=== PATIENT | male | born 1940 | race Two or more races ===

== ENCOUNTER → 2022-11-17 | Outpatient (CLI) | payer OTHER ==
[2022-11-17 10:29] LABS: Basophils # (auto) 0 10 ^3/uL (0-0.2); Basophils % (auto) 0.5 % (0.0-2.0); Eosinophils # (auto) 0.1 10 ^3/uL (0-0.8); Eosinophils % (auto) 1.5 % (0.0-7.0); Hematocrit 40.5 % (41.0-53.0); Hemoglobin 13.6 g/dL (13.5-17.5); Lymphocytes # (auto) 1.6 10 ^3/uL (0.4-5.4); Lymphocytes % (auto) 32.4 % (10.0-50.0); Mean Corpuscular Hemoglobin 29.7 pg (28.0-32.0); Mean Corpuscular Hgb Conc. 33.6 g/dL (32.0-36.0); Mean Corpuscular Volume 88.4 fL (80.0-100.0); Monocytes # (auto) 0.4 10 ^3/uL (0-1.3); Monocytes % (auto) 8.5 % (0.0-12.0); Neutrophils # (auto) 2.9 10 ^3/uL (1.6-8.6); Neutrophils % (auto) 57.1 % (37.0-80.0); Nucleated Red Blood Cells % 0.1 %; Red Blood Cells 4.58 10^6/uL (4.5-5.90); Red Cell Distribution Width 13.9 % (11.8-14.3)
[2022-11-17 10:42] LABS: Urine Bacteria NONE SEEN /hpf (None Seen); Urine Blood Negative /uL (Negative); Urine Specific Gravity 1.013 (1.001-1.035); Urine WBC 1 /hpf (0 - 3)
[2022-11-17 11:00] LABS: Potassium 4.3 mmol/L (3.5-5.1)
[2022-11-17 11:22] LABS: Albumin 3.9 g/dL (3.4-5.0); BUN/Creatinine Ratio 8.8 (10.0-20.0); Bilirubin, Total 1.1 mg/dL (0.2-1.0); Calcium 8.6 mg/dL (8.5-10.1); Total Protein 7.5 g/dL (6.4-8.2)
== END | disposition home or self-care (01) ==
LOC: LAB 10:02
PROVIDERS: ATTEND Internal Medicine
DX: Z00.01 Encounter for general adult medical examination with abnormal findings (principal); R73.9 Hyperglycemia, unspecified; E03.9 Hypothyroidism, unspecified; E78.5 Hyperlipidemia, unspecified
CPT/HCPCS: 36415; 80053; 80061; 81001; 82306; 82550; 83036; 84436; 84443; 85025; 87086

== ENCOUNTER 2023-12-11 10:42 | Inpatient (IN) | payer OTHER ==
[~2023-12-11] VITALS: Ht 172.7 cm; Wt 74.8 kg
[2023-12-11 11:28] LABS: Basophils # (auto) 0 10 ^3/uL (0-0.2); Basophils % (auto) 0.5 % (0.0-2.0); Eosinophils # (auto) 0.1 10 ^3/uL (0-0.8); Eosinophils % (auto) 0.8 % (0.0-7.0); Hematocrit 35.9 % (41.0-53.0); Lymphocytes # (auto) 1.6 10 ^3/uL (0.4-5.4); Lymphocytes % (auto) 20.9 % (10.0-50.0); Mean Corpuscular Hemoglobin 29.3 pg (28.0-32.0); Mean Corpuscular Hgb Conc. 33.5 g/dL (32.0-36.0); Mean Corpuscular Volume 87.6 fL (80.0-100.0); Monocytes # (auto) 0.4 10 ^3/uL (0-1.3); Monocytes % (auto) 4.8 % (0.0-12.0); Neutrophils # (auto) 5.5 10 ^3/uL (1.6-8.6); Red Cell Distribution Width 14.9 % (11.8-14.3); White Blood Cell 7.5 10^3/uL (4.4-10.8)
[2023-12-11 11:52] LABS: INR 1.06 (0.9-1.15); Partial Thromboplastin Time 25.1 SEC (24.5-34.5); Prothrombin Time 11.2 sec (9.3-11.8)
[2023-12-11 11:55] VITALS: PULSE 65; RESP 17; O2SAT 94
[2023-12-11] MEDS: HEPARIN SODIUM (PORCINE) 5000 UNITS/ML 1ML VIAL IV ONE (11:59)
[2023-12-11] MEDS: SODIUM CHLORIDE 0.9% 1,000 ML IVB ONE (12:01)
[2023-12-11] MEDS: ONDANSETRON HCL 4 MG/2 ML VIAL IV ONE (12:01)
[2023-12-11] MEDS: MORPHINE SULFATE 4 MG/ML SYR/VIAL IV ONE (12:02)
[2023-12-11 12:03] LABS: Alanine Aminotransferase 13 U/L (7-40); Albumin 3.9 g/dL (3.2-4.8); Alkaline Phosphatase 63 U/L (46-116); Anion Gap 8 (5-15); Aspartate Aminotransferase 16 U/L (13-40); BUN/Creatinine Ratio 10.2 (10.0-20.0); Blood Urea Nitrogen 15 mg/dL (9-23); Carbon Dioxide 22 mmol/L (20-30); Chloride 111 mmol/L (98-107); Glucose 146 mg/dL (74-106); Sodium 141 mmol/L (136-145)
[2023-12-11 12:04] LABS: Bilirubin, Total 0.8 mg/dL (0.2-1.0); Total Protein 6.6 g/dL (5.7-8.2)
[2023-12-11] MEDS: HEPARIN DRIP/D5W 100UNITS/ML 250 ML IV SCH (14:07)
[2023-12-11] MEDS: hydrALAZINE HCL 20 MG/ML VL ONE (14:35)
[2023-12-11] MEDS: NITROGLYCERIN 0.4 MG SL TAB SL ONE ×2 (14:35→15:26)
[2023-12-11] MEDS ORDERED: NITROGLYCERIN 0.4 MG SL TAB SL PRN (15:15)
[2023-12-11] MEDS ORDERED: MORPHINE SULFATE INJ 2 MG/ml SYRG IV PRN ×2 (15:15→16:00)
[2023-12-11] MEDS: hydrALAZINE HCL 20 MG/ML VL IV ONE (15:27)
[2023-12-11] MEDS: ASPirin 325 MG TAB PO ONE (15:38)
[2023-12-11] MEDS: CLOPIDOGREL BISULFATE 75 MG TAB PO ONE (15:38)
[2023-12-11] MEDS ORDERED: hydrALAZINE HCL 20 MG/ML VL IV PRN (15:45)
[2023-12-11] MEDS ORDERED: BENA-36 PO (16:00)
[2023-12-11] MEDS ORDERED: ACETAMINOPHEN 325 MG TAB PO PRN (16:00)
[2023-12-11] MEDS ORDERED: HYDROcodone-ACET 5/325MG TAB PO PRN (16:00)
[2023-12-11] MEDS ORDERED: DOCUSATE SOD 100 MG CAP PO PRN (16:00)
[2023-12-11] MEDS ORDERED: ONDANSETRON HCL 4 MG/2 ML VIAL IV PRN (16:00)
[2023-12-11] MEDS ORDERED: CLOP75TA70 PO (16:00)
[2023-12-11] MEDS ORDERED: FLUO20CA90 PO (16:00)
[2023-12-11] MEDS: FUROSEMIDE 40 MG/4 ML VIAL IV ONE (17:32)
[2023-12-11] MEDS: NIFEdipine ER 30 MG TAB PO ONE (18:22)
[2023-12-11 19:31] LABS: Urine Bacteria None Seen /hpf (None Seen)
[2023-12-11 19:39] LABS: Urine Blood Negative /uL (Negative); Urine Clarity Clear (Clear); Urine Color Light-Yellow (Yellow); Urine Protein, UAD TRACE (Negative); Urine Specific Gravity 1.019 (1.001-1.035); Urine Urobilinogen Normal (Negative); Urine WBC <1 /hpf (0 - 3); Urine pH 5.5 (5.0-9.0)
[2023-12-11] MEDS: NITROGLYCERIN 0.4 MG SL TAB SL PRN (19:39)
[2023-12-11] MEDS: SODIUM CHLORIDE 0.9% 1,000 ML IV ONE (19:43)
[2023-12-11 21:04] LABS: INR 1.14 (0.9-1.15)
[2023-12-11] MEDS: IOHEXOL 300 MG/ML 100ML BOTTLE IJ ONE (21:06)
[2023-12-11] MEDS: IODIXANOL 320MG/ML 100ML BTL IV ONE (21:41)
[2023-12-11] MEDS: LIDOCAINE 2%HCL (LOCAL ANESTH.) INJ 20ML MDV ONE (21:41)
[2023-12-11] MEDS: METOPROLOL TARTRATE 25 MG TAB PO SCH (22:00)
[2023-12-11] MEDS: ATORVASTATIN 20 MG TAB PO SCH (22:00)
[2023-12-11] MEDS: SODIUM CHLOR 0.9% PF (SALINE LOCK) 10ML VIAL/SYR IV SCH (22:00)
[2023-12-11] MEDS: ANGIOMAX 250 MG VIAL IV ONE (22:03)
[2023-12-11] MEDS: fentaNYL CITRATE 100 MCG/2 ML VL ONE (22:03)
[2023-12-11] MEDS: SODIUM CHL 0.9% 50 ML ONE (22:04)
[2023-12-11] MEDS: MIDAZOLAM HCL 2MG/2ML 2ml VIAL (1mg/ml) ONE (22:04)
[2023-12-11] MEDS ORDERED: HEPARIN SODIUM (PORCINE) 5000 UNITS/ML 1ML VIAL IV ONE (22:45)
[2023-12-11] MEDS ORDERED: HEPARIN DRIP/D5W 100UNITS/ML 250 ML IV SCH (22:45)
[2023-12-11 23:15] VITALS: BP 136/80; PULSE 79; RESP 17; O2SAT 97
[2023-12-11 23:30] VITALS: BP 147/81; PULSE 75; RESP 19; O2SAT 97
[2023-12-11] MEDS ORDERED: CLOPIDOGREL BISULFATE 75 MG TAB PO ONE (23:30)
[2023-12-11 23:45] VITALS: BP 145/85; PULSE 78; RESP 16; O2SAT 98
[2023-12-12] VITALS (9 sets, daily range): BP systolic 112–155; BP diastolic 60–87; PULSE 59–84; RESP 16–18; TEMP 97.6–98.9; O2SAT 93–99
[2023-12-12] MEDS: SODIUM CHLORIDE 0.9% 1,000 ML IV ONE (00:17)
[2023-12-12] MEDS: FUROSEMIDE 20 MG/2 ML VIAL IV SCH (05:29)
[2023-12-12 05:48] LABS: Basophils # (auto) 0 10 ^3/uL (0-0.2); Basophils % (auto) 0.3 % (0.0-2.0); Eosinophils # (auto) 0 10 ^3/uL (0-0.8); Eosinophils % (auto) 0.1 % (0.0-7.0); Hemoglobin 11.8 g/dL (13.5-17.5); Lymphocytes # (auto) 1.1 10 ^3/uL (0.4-5.4); Mean Corpuscular Hemoglobin 29.4 pg (28.0-32.0); Mean Corpuscular Hgb Conc. 33.7 g/dL (32.0-36.0); Mean Corpuscular Volume 87.4 fL (80.0-100.0); Monocytes # (auto) 0.7 10 ^3/uL (0-1.3); Monocytes % (auto) 7.3 % (0.0-12.0); Neutrophils # (auto) 7.3 10 ^3/uL (1.6-8.6); Neutrophils % (auto) 80.3 % (37.0-80.0); Nucleated Red Blood Cells % 0.1 %; Red Blood Cells 4.01 10^6/uL (4.5-5.90); White Blood Cell 9.1 10^3/uL (4.4-10.8)
[2023-12-12 06:23] LABS: Alanine Aminotransferase 26 U/L (7-40); Albumin 3.7 g/dL (3.2-4.8); Alkaline Phosphatase 61 U/L (46-116); Anion Gap 7 (5-15); Aspartate Aminotransferase 148 U/L (13-40); BUN/Creatinine Ratio 14.2 (10.0-20.0); Blood Urea Nitrogen 19 mg/dL (9-23); Calcium 8.6 mg/dL (8.5-10.1); Carbon Dioxide 23 mmol/L (20-30); Chloride 110 mmol/L (98-107); Glucose 114 mg/dL (74-106); Potassium 4.4 mmol/L (3.5-5.1); Sodium 140 mmol/L (136-145)
[2023-12-12 06:24] LABS: Bilirubin, Total 0.8 mg/dL (0.2-1.0); Total Protein 6.1 g/dL (5.7-8.2)
[2023-12-12] MEDS: FLUoxetine HCL 20 MG CAP PO SCH (09:39)
[2023-12-12] MEDS: NIFEdipine ER 30 MG TAB PO SCH (09:39)
[2023-12-12] MEDS: ASPirin 81 mg TAB PO SCH (09:39)
[2023-12-12] MEDS: CLOPIDOGREL BISULFATE 75 MG TAB PO SCH (09:39)
[2023-12-12] MEDS ORDERED: ASPirin 81 mg TAB PO SCH (10:00)
[2023-12-12] MEDS ORDERED: CLOPIDOGREL BISULFATE 75 MG TAB PO ONE ×2 (10:00)
[2023-12-12] MEDS ORDERED: PATIENTS OWN MEDICATION (Benazepril Hcl 1 TAB) PO SCH (10:00)
[2023-12-12] MEDS ORDERED: BENAZEPRIL HCL 10 MG TAB PO SCH (10:00)
[2023-12-13] VITALS (7 sets, daily range): BP systolic 96–128; BP diastolic 55–75; PULSE 59–67; RESP 16–22; TEMP 97.5–98.2; O2SAT 95–98
[2023-12-13 10:07] LABS: Basophils # (auto) 0 10 ^3/uL (0-0.2); Basophils % (auto) 0.5 % (0.0-2.0); Eosinophils # (auto) 0.1 10 ^3/uL (0-0.8); Eosinophils % (auto) 0.9 % (0.0-7.0); Hemoglobin 11.8 g/dL (13.5-17.5); Lymphocytes # (auto) 0.9 10 ^3/uL (0.4-5.4); Lymphocytes % (auto) 13.3 % (10.0-50.0); Mean Corpuscular Hemoglobin 29.6 pg (28.0-32.0); Mean Corpuscular Hgb Conc. 33.8 g/dL (32.0-36.0); Mean Corpuscular Volume 87.6 fL (80.0-100.0); Monocytes # (auto) 0.5 10 ^3/uL (0-1.3); Monocytes % (auto) 7.9 % (0.0-12.0); Neutrophils # (auto) 5.4 10 ^3/uL (1.6-8.6); Neutrophils % (auto) 77.4 % (37.0-80.0); Red Cell Distribution Width 15.1 % (11.8-14.3); White Blood Cell 6.9 10^3/uL (4.4-10.8)
[2023-12-13 10:25] LABS: Chloride 109 mmol/L (98-107); Sodium 139 mmol/L (136-145)
[2023-12-13 10:26] LABS: Anion Gap 6 (5-15); Carbon Dioxide 24 mmol/L (20-30)
[2023-12-13 10:27] LABS: Calcium 8.7 mg/dL (8.5-10.1)
[2023-12-13 10:31] LABS: BUN/Creatinine Ratio 13.9 (10.0-20.0); Blood Urea Nitrogen 21 mg/dL (9-23); Glucose 122 mg/dL (74-106)
[2023-12-13] MEDS: FUROSEMIDE 20 MG/2 ML VIAL IV SCH (10:32)
[2023-12-13] MEDS: ENALAPRIL MALEATE 2.5 MG TAB PO SCH (10:34)
[2023-12-14] VITALS (7 sets, daily range): BP systolic 120–146; BP diastolic 70–93; PULSE 64–69; RESP 18–20; TEMP 36.5; O2SAT 96–99
[2023-12-14] MEDS ORDERED: ASPI-498 OR (13:25)
[2023-12-14] MEDS ORDERED: FURO1TAB33 PO (13:25)
[2023-12-14] MEDS ORDERED: POTA8TAB38 PO (13:25)
[2023-12-14] MEDS ORDERED: ENAL1TAB43 PO (13:25)
[2023-12-14] MEDS ORDERED: CLOP75TA28 PO (13:25)
[2023-12-14] MEDS ORDERED: METO25TA36 PO (13:25)
== END 2023-12-14 17:25 | disposition home or self-care (01) | DRG 322 ==
LOC: ER 10:42 → EDBD 10:42 → TELE 15:59 → TELE-WESTW 12-12 00:15
PROVIDERS: ADMIT Nurse Practitioner Family; ATTEND Nurse Practitioner Acute Care
PROC: 04HY32Z Insertion of Monitoring Device into Lower Artery, Percutaneous Approach (ICD-10-PCS; principal; 2023-12-11)
PROC: 027035Z Dilation of Coronary Artery, One Artery with Two Drug-eluting Intraluminal Devices, Percutaneous Approach (ICD-10-PCS; 2023-12-11)
PROC: 4A023N7 Measurement of Cardiac Sampling and Pressure, Left Heart, Percutaneous Approach (ICD-10-PCS; 2023-12-11)
PROC: B312YZZ Fluoroscopy of Left Subclavian Artery using Other Contrast (ICD-10-PCS; 2023-12-11)
PROC: B211YZZ Fluoroscopy of Multiple Coronary Arteries using Other Contrast (ICD-10-PCS; 2023-12-11)
PROC: B218YZZ Fluoroscopy of Left Internal Mammary Bypass Graft using Other Contrast (ICD-10-PCS; 2023-12-11)
PROC: B213YZZ Fluoroscopy of Multiple Coronary Artery Bypass Grafts using Other Contrast (ICD-10-PCS; 2023-12-11)
DX: I21.4 Non-ST elevation (NSTEMI) myocardial infarction (principal); I13.0 Hypertensive heart and chronic kidney disease with heart failure and stage 1 through stage 4 chronic kidney disease, or unspecified chronic kidney disease; N17.9 Acute kidney failure, unspecified; I16.0 Hypertensive urgency; E78.5 Hyperlipidemia, unspecified; D64.9 Anemia, unspecified; I50.9 Heart failure, unspecified; N18.32 Chronic kidney disease, stage 3b; I25.10 Atherosclerotic heart disease of native coronary artery without angina pectoris; I27.20 Pulmonary hypertension, unspecified; I08.0 Rheumatic disorders of both mitral and aortic valves; Z95.1 Presence of aortocoronary bypass graft; Z79.899 Other long term (current) drug therapy; Z79.02 Long term (current) use of antithrombotics/antiplatelets; Z86.73 Personal history of transient ischemic attack (TIA), and cerebral infarction without residual deficits; Z87.891 Personal history of nicotine dependence
CPT/HCPCS: 36415; 70450; 71045; 71260; 74177; 80048; 80053; 81001; 83880; 84484; 85025; 85610; 85730; 93005; 93306; 99152; 99291; G0378; J2250; J2405; Q9967

== ENCOUNTER 2024-04-08 01:28 | Inpatient (IN) | payer OTHER ==
[2024-04-08] VITALS (19 sets, daily range): BP systolic 61–174; BP diastolic 61–99; PULSE 52–91; RESP 13–23; TEMP 97.4–98.5; O2SAT 94–100
[~2024-04-08] VITALS: Ht 172.7 cm; Wt 68.9 kg
[~2024-04-08 01:28] MED LIST: ASPI-498 OR; BENA-36 PO; CLOP75TA28 PO; CLOP75TA70 PO; ENAL1TAB43 PO; FLUO-470 PO; FURO1TAB33 PO; METO25TA36 PO; POTA8TAB38 PO
[2024-04-08] MEDS: PANTOPRAZOLE 40 MG/10 ML VIAL INJ IV ONE (02:45)
[2024-04-08] MEDS: PANTOPRAZOLE 40mg/50ML NS AE 50 ML IV ONE (02:45)
[2024-04-08 03:18] LABS: Albumin 3.7 g/dL (3.2-4.8); Alkaline Phosphatase 52 U/L (46-116); Anion Gap 8 (5-15); Aspartate Aminotransferase 12 U/L (13-40); BUN/Creatinine Ratio 8.3 (10.0-20.0); Blood Urea Nitrogen 11 mg/dL (9-23); Calcium 8.6 mg/dL (8.7-10.4); Carbon Dioxide 23 mmol/L (20-31); Chloride 108 mmol/L (98-107); Glucose 189 mg/dL (74-106); INR 1.18 (0.9-1.15); Potassium 3.7 mmol/L (3.5-5.1); Prothrombin Time 12.4 sec (9.3-11.8); Sodium 139 mmol/L (136-145)
[2024-04-08 03:19] LABS: Bilirubin, Total 0.9 mg/dL (0.2-1.0); Total Protein 6.2 g/dL (5.7-8.2)
[2024-04-08 03:22] LABS: Basophils # (auto) 0 10 ^3/uL (0-0.2); Basophils % (auto) 0.6 % (0.0-2.0); Eosinophils # (auto) 0 10 ^3/uL (0-0.8); Eosinophils % (auto) 0.2 % (0.0-7.0); Hematocrit 30.1 % (41.0-53.0); Lymphocytes # (auto) 1.3 10 ^3/uL (0.4-5.4); Lymphocytes % (auto) 15.6 % (10.0-50.0); Mean Corpuscular Hemoglobin 30.2 pg (28.0-32.0); Mean Corpuscular Hgb Conc. 33.3 g/dL (32.0-36.0); Mean Corpuscular Volume 90.6 fL (80.0-100.0); Monocytes # (auto) 0.4 10 ^3/uL (0-1.3); Monocytes % (auto) 4.6 % (0.0-12.0); Neutrophils # (auto) 6.5 10 ^3/uL (1.6-8.6); Nucleated Red Blood Cells % 0.1 %; Platelet Count (auto) 158 10^3/uL (140-450); Red Blood Cells 3.32 10^6/uL (4.5-5.90); Red Cell Distribution Width 15.7 % (11.8-14.3); White Blood Cell 8.2 10^3/uL (4.4-10.8)
[2024-04-08 03:23] LABS: Alanine Aminotransferase < 9 U/L (7-40)
[2024-04-08] MEDS: HYDROcodone-ACET 5/325MG TAB PO ONE (03:30)
[2024-04-08] MEDS: SODIUM CHLORIDE 0.9% 1,000 ML IV ONE (03:34)
[2024-04-08 04:44] LABS: Hemoglobin 8.4 g/dL (13.5-17.5)
[2024-04-08 04:45] LABS: Hematocrit 24.7 % (41.0-53.0)
[2024-04-08] MEDS ORDERED: MORPHINE SULFATE INJ 2 MG/ml SYRG IV PRN (11:30)
[2024-04-08] MEDS ORDERED: DOCUSATE SOD 100 MG CAP PO PRN (11:30)
[2024-04-08] MEDS ORDERED: ONDANSETRON HCL 4 MG/2 ML VIAL IV PRN ×2 (11:30→15:30)
[2024-04-08] MEDS: SODIUM CHLORIDE 0.9% 1,000 ML IV SCH (11:30)
[2024-04-08] MEDS ORDERED: NITROGLYCERIN 0.4 MG SL TAB SL PRN (11:30)
[2024-04-08] MEDS: HYDROmorphone HCL 2 MG/ML VL/or syr IV PRN (15:25)
[2024-04-08] MEDS ORDERED: ePHEDrine SULFATE 50 MG/ML AMP IV PRN (15:30)
[2024-04-08] MEDS ORDERED: FLUMAZENIL 0.1 MG/ML INJ 10ML MDV IV PRN (15:30)
[2024-04-08] MEDS ORDERED: NALOXONE HCL 0.4 MG/ML VIAL IV PRN (15:30)
[2024-04-08] MEDS ORDERED: fentaNYL CITRATE 100 MCG/2 ML VL IV PRN (15:30)
[2024-04-08] MEDS: hydrALAZINE HCL 20 MG/ML VL IV PRN (15:46)
[2024-04-08] MEDS: PANTOPRAZOLE 40mg/50ML NS AE 50 ML IV SCH (16:30)
[2024-04-08] MEDS: OCTREOTIDE ACETATE 100 MCG in SODIUM CHL 0.9% 50 ML IV ONE (17:40)
[2024-04-08] MEDS: OCTREOTIDE ACETATE 500 MCG in SODIUM CHL 0.9% 99 ML IV SCH (17:50)
[2024-04-08] MEDS: PIPERACILLIN-TAZOB 3.375GM 100 ML IV ONE (18:25)
[2024-04-08 19:01] LABS: Hematocrit 34.3 % (41.0-53.0); Hemoglobin 11.3 g/dL (13.5-17.5)
[2024-04-08] MEDS: PANTOPRAZOLE 40 MG/10 ML VIAL INJ IV SCH (22:09)
[2024-04-09] VITALS (10 sets, daily range): BP systolic 135–170; BP diastolic 74–101; PULSE 74–99; RESP 18–21; TEMP 97.4–98.4; O2SAT 95–99
[2024-04-09 00:31] LABS: Hematocrit 32.9 % (41.0-53.0); Hemoglobin 11.1 g/dL (13.5-17.5)
[2024-04-09] MEDS: PIPERACILLIN-TAZOB 3.375GM 100 ML IV SCH (05:12)
[2024-04-09 06:03] LABS: Basophils # (auto) 0 10 ^3/uL (0-0.2); Basophils % (auto) 0.1 % (0.0-2.0); Eosinophils # (auto) 0 10 ^3/uL (0-0.8); Eosinophils % (auto) 0.1 % (0.0-7.0); Hematocrit 32.2 % (41.0-53.0); Hemoglobin 10.9 g/dL (13.5-17.5); Lymphocytes # (auto) 1.1 10 ^3/uL (0.4-5.4); Mean Corpuscular Hemoglobin 30.1 pg (28.0-32.0); Mean Corpuscular Volume 88.4 fL (80.0-100.0); Monocytes # (auto) 0.8 10 ^3/uL (0-1.3); Monocytes % (auto) 9.1 % (0.0-12.0); Neutrophils # (auto) 6.5 10 ^3/uL (1.6-8.6); Neutrophils % (auto) 77.7 % (37.0-80.0); Nucleated Red Blood Cells % 0.1 %; Platelet Count (auto) 110 10^3/uL (140-450); Red Blood Cells 3.64 10^6/uL (4.5-5.90); Red Cell Distribution Width 16.7 % (11.8-14.3); White Blood Cell 8.4 10^3/uL (4.4-10.8)
[2024-04-09 06:18] LABS: Alanine Aminotransferase 15 U/L (7-40); Albumin 3.7 g/dL (3.2-4.8); Alkaline Phosphatase 50 U/L (46-116); Anion Gap 7 (5-15); Aspartate Aminotransferase 133 U/L (13-40); BUN/Creatinine Ratio 9.3 (10.0-20.0); Blood Urea Nitrogen 13 mg/dL (9-23); Calcium 8.9 mg/dL (8.7-10.4); Carbon Dioxide 23 mmol/L (20-31); Chloride 110 mmol/L (98-107); Glucose 132 mg/dL (74-106); Potassium 4.6 mmol/L (3.5-5.1); Sodium 140 mmol/L (136-145)
[2024-04-09 06:19] LABS: Bilirubin, Total 1.8 mg/dL (0.2-1.0); Total Protein 6.2 g/dL (5.7-8.2)
[2024-04-09 12:14] LABS: Hemoglobin 11.2 g/dL (13.5-17.5)
[2024-04-09] MEDS: hydrALAZINE HCL 20 MG/ML VL IV PRN (13:45)
[2024-04-09] MEDS: ACETAMINOPHEN 650 mg PER 20.3 mL UD PO PRN (15:23)
[2024-04-09] MEDS: SODIUM CHLORIDE 0.9% 1,000 ML IV SCH (15:23)
[2024-04-09 18:39] LABS: Hematocrit 34.7 % (41.0-53.0); Hemoglobin 11.3 g/dL (13.5-17.5)
[2024-04-09] MEDS: SUCRALFATE 1 GM/10 ML ORAL SUSP GT SCH (22:30)
[2024-04-10] VITALS (8 sets, daily range): BP systolic 125–157; BP diastolic 63–107; PULSE 60–88; RESP 16–19; TEMP 97.4–98.3; O2SAT 94–100
[2024-04-10] MEDS: LEVOTHYROXINE SODIUM 25 MCG TAB PO SCH (06:12)
[2024-04-10 06:18] LABS: Basophils # (auto) 0 10 ^3/uL (0-0.2); Basophils % (auto) 0.4 % (0.0-2.0); Eosinophils # (auto) 0 10 ^3/uL (0-0.8); Eosinophils % (auto) 0.3 % (0.0-7.0); Hematocrit 32.8 % (41.0-53.0); Hemoglobin 11.1 g/dL (13.5-17.5); Lymphocytes # (auto) 1.5 10 ^3/uL (0.4-5.4); Mean Corpuscular Hgb Conc. 33.7 g/dL (32.0-36.0); Mean Corpuscular Volume 88.8 fL (80.0-100.0); Monocytes # (auto) 0.6 10 ^3/uL (0-1.3); Monocytes % (auto) 9.1 % (0.0-12.0); Neutrophils # (auto) 4.9 10 ^3/uL (1.6-8.6); Neutrophils % (auto) 69.2 % (37.0-80.0); Nucleated Red Blood Cells % 0.1 %; Platelet Count (auto) 107 10^3/uL (140-450); White Blood Cell 7.1 10^3/uL (4.4-10.8)
[2024-04-10 06:32] LABS: INR 1.18 (0.9-1.15); Prothrombin Time 12.4 sec (9.3-11.8)
[2024-04-10 06:52] LABS: Alanine Aminotransferase 17 U/L (7-40); Albumin 3.5 g/dL (3.2-4.8); Alkaline Phosphatase 48 U/L (46-116); Anion Gap 7 (5-15); Aspartate Aminotransferase 97 U/L (13-40); BUN/Creatinine Ratio 11.8 (10.0-20.0); Blood Urea Nitrogen 16 mg/dL (9-23); Calcium 8.9 mg/dL (8.7-10.4); Carbon Dioxide 24 mmol/L (20-31); Chloride 110 mmol/L (98-107); Glucose 97 mg/dL (74-106); Sodium 141 mmol/L (136-145)
[2024-04-10 06:53] LABS: Bilirubin, Total 1.4 mg/dL (0.2-1.0); Total Protein 6.1 g/dL (5.7-8.2)
[2024-04-10] MEDS: FLUoxetine HCL 20 MG CAP PO SCH (09:09)
[2024-04-10] MEDS: METOPROLOL SUCCINATE XL 50 MG TAB PO SCH (09:09)
[2024-04-10] MEDS: ENALAPRIL MALEATE 2.5 MG TAB PO SCH (09:10)
[2024-04-10] MEDS: FUROSEMIDE 20 MG TAB PO SCH (17:33)
[2024-04-10 17:58] LABS: Hematocrit 34.4 % (41.0-53.0); Hemoglobin 11.3 g/dL (13.5-17.5)
[2024-04-10] MEDS: PRAZOSIN HCL 1 MG CAP PO SCH (20:19)
[2024-04-11] VITALS (9 sets, daily range): BP systolic 113–145; BP diastolic 67–76; PULSE 50–68; RESP 17–19; TEMP 36.6; O2SAT 92–99
[2024-04-11 05:56] LABS: Basophils # (auto) 0 10 ^3/uL (0-0.2); Basophils % (auto) 0.4 % (0.0-2.0); Eosinophils # (auto) 0 10 ^3/uL (0-0.8); Eosinophils % (auto) 0.3 % (0.0-7.0); Hematocrit 32.5 % (41.0-53.0); Hemoglobin 11.1 g/dL (13.5-17.5); Lymphocytes # (auto) 0.7 10 ^3/uL (0.4-5.4); Lymphocytes % (auto) 11.5 % (10.0-50.0); Mean Corpuscular Hemoglobin 30.2 pg (28.0-32.0); Mean Corpuscular Hgb Conc. 34.2 g/dL (32.0-36.0); Mean Corpuscular Volume 88.3 fL (80.0-100.0); Monocytes # (auto) 0.5 10 ^3/uL (0-1.3); Monocytes % (auto) 7.3 % (0.0-12.0); Neutrophils # (auto) 5.2 10 ^3/uL (1.6-8.6); Neutrophils % (auto) 80.5 % (37.0-80.0); Nucleated Red Blood Cells % 0.2 %; Platelet Count (auto) 113 10^3/uL (140-450); Red Blood Cells 3.68 10^6/uL (4.5-5.90); Red Cell Distribution Width 16.7 % (11.8-14.3); White Blood Cell 6.5 10^3/uL (4.4-10.8)
[2024-04-11 06:23] LABS: Alanine Aminotransferase 16 U/L (7-40); Albumin 3.4 g/dL (3.2-4.8); Alkaline Phosphatase 45 U/L (46-116); Anion Gap 7 (5-15); Aspartate Aminotransferase 49 U/L (13-40); BUN/Creatinine Ratio 11.3 (10.0-20.0); Bilirubin, Total 1.2 mg/dL (0.2-1.0); Blood Urea Nitrogen 18 mg/dL (9-23); Calcium 8.6 mg/dL (8.7-10.4); Carbon Dioxide 24 mmol/L (20-31); Chloride 109 mmol/L (98-107); Glucose 93 mg/dL (74-106); Potassium 3.7 mmol/L (3.5-5.1); Sodium 140 mmol/L (136-145); Total Protein 5.8 g/dL (5.7-8.2)
[2024-04-11] MEDS ORDERED: PANT40TA2 PO (13:31)
[2024-04-11] MEDS ORDERED: AUG875T PO (13:31)
[2024-04-11] MEDS ORDERED: LEVO25TA6 PO (13:31)
[2024-04-11] MEDS ORDERED: SUCR1SUS26 PO (13:31)
[2024-04-12 01:00] VITALS: BP 137/76; PULSE 67; RESP 18; TEMP 97.9; O2SAT 95
[2024-04-12 05:00] VITALS: BP 133/72; PULSE 61; RESP 18; TEMP 98; O2SAT 98
[2024-04-12 06:52] LABS: Basophils # (auto) 0 10 ^3/uL (0-0.2); Basophils % (auto) 0.6 % (0.0-2.0); Eosinophils # (auto) 0.1 10 ^3/uL (0-0.8); Eosinophils % (auto) 1.9 % (0.0-7.0); Hematocrit 31.6 % (41.0-53.0); Lymphocytes # (auto) 1.3 10 ^3/uL (0.4-5.4); Lymphocytes % (auto) 25.3 % (10.0-50.0); Mean Corpuscular Hemoglobin 30.4 pg (28.0-32.0); Mean Corpuscular Hgb Conc. 34.8 g/dL (32.0-36.0); Mean Corpuscular Volume 87.4 fL (80.0-100.0); Monocytes # (auto) 0.5 10 ^3/uL (0-1.3); Monocytes % (auto) 10.3 % (0.0-12.0); Neutrophils # (auto) 3.2 10 ^3/uL (1.6-8.6); Neutrophils % (auto) 61.9 % (37.0-80.0); Nucleated Red Blood Cells % 0.1 %; Platelet Count (auto) 140 10^3/uL (140-450); Red Blood Cells 3.62 10^6/uL (4.5-5.90); Red Cell Distribution Width 16.6 % (11.8-14.3); White Blood Cell 5.2 10^3/uL (4.4-10.8)
[2024-04-12 09:00] VITALS: BP 151/71; PULSE 60; RESP 17; TEMP 98; O2SAT 98
[2024-04-12 13:00] VITALS: BP 124/65; PULSE 56; RESP 17; TEMP 98; O2SAT 93
== END 2024-04-12 16:07 | disposition home or self-care (01) | DRG 368 ==
LOC: EDBD 01:28 → ER 01:28 → TELE 11:31 → TELE-EAST 16:26
PROVIDERS: ADMIT Nurse Practitioner Family; ATTEND Student in an Organized Health Care Education/Training Program
PROC: 0DB68ZX Excision of Stomach, Via Natural or Artificial Opening Endoscopic, Diagnostic (ICD-10-PCS; 2024-04-08)
PROC: 30243N1 Transfusion of Nonautologous Red Blood Cells into Central Vein, Percutaneous Approach (ICD-10-PCS; 2024-04-08)
PROC: 3E0G8GC Introduction of Other Therapeutic Substance into Upper GI, Via Natural or Artificial Opening Endoscopic (ICD-10-PCS; 2024-04-08)
PROC: 0DB98ZX Excision of Duodenum, Via Natural or Artificial Opening Endoscopic, Diagnostic (ICD-10-PCS; principal; 2024-04-08 14:34)
DX: K21.01 Gastro-esophageal reflux disease with esophagitis, with bleeding (principal); K22.11 Ulcer of esophagus with bleeding; K22.6 Gastro-esophageal laceration-hemorrhage syndrome; K29.71 Gastritis, unspecified, with bleeding; K57.31 Diverticulosis of large intestine without perforation or abscess with bleeding; D62 Acute posthemorrhagic anemia; I50.42 Chronic combined systolic (congestive) and diastolic (congestive) heart failure; E03.9 Hypothyroidism, unspecified; I25.10 Atherosclerotic heart disease of native coronary artery without angina pectoris; N40.1 Benign prostatic hyperplasia with lower urinary tract symptoms; I70.1 Atherosclerosis of renal artery; N26.1 Atrophy of kidney (terminal); I16.0 Hypertensive urgency; I11.0 Hypertensive heart disease with heart failure; K44.9 Diaphragmatic hernia without obstruction or gangrene; N30.90 Cystitis, unspecified without hematuria; Z95.1 Presence of aortocoronary bypass graft; Z86.73 Personal history of transient ischemic attack (TIA), and cerebral infarction without residual deficits; I25.2 Old myocardial infarction; Z95.0 Presence of cardiac pacemaker
CPT/HCPCS: 36415; 71045; 74175; 80053; 83880; 85014; 85018; 85025; 85610; 85730; 86850; 86900; 86901; 86920; 93005; 96365; 96375; 97163; G0378; J2470; J2543

== ENCOUNTER 2024-07-19 00:28 | Inpatient (IN) | payer OTHER ==
[2024-07-18 23:50] VITALS: BP 170/94; PULSE 72; RESP 17; TEMP 97.8; O2SAT 94
[~2024-07-19] VITALS: Ht 180.3 cm; Wt 67.4 kg
[~2024-07-19 00:28] MED LIST changes: +AUG875T PO; -BENA-36 PO; -CLOP75TA28 PO; +LEVO25TA6 PO; +PANT40TA2 PO; +SUCR1SUS26 PO
[2024-07-19] MEDS ORDERED: ASPI1TAB19 PO (01:16)
[2024-07-19] MEDS ORDERED: PRAZ1CAP2 PO (01:16)
[2024-07-19] MEDS ORDERED: LEVO25TA6 PO (01:16)
[2024-07-19] MEDS ORDERED: HYDR50TA47 PO (01:16)
[2024-07-19] MEDS ORDERED: ATOR80TA PO (01:16)
[2024-07-19] MEDS ORDERED: FLUO1TAB14 PO (01:16)
[2024-07-19] MEDS ORDERED: CLOP75TA28 PO (01:16)
[2024-07-19 01:43] LABS: Basophils # (auto) 0 10 ^3/uL (0-0.2); Basophils % (auto) 0.7 % (0.0-2.0); Eosinophils # (auto) 0 10 ^3/uL (0-0.8); Eosinophils % (auto) 0.6 % (0.0-7.0); Hematocrit 36.9 % (41.0-53.0); Hemoglobin 12.3 g/dL (13.5-17.5); Lymphocytes # (auto) 0.9 10 ^3/uL (0.4-5.4); Lymphocytes % (auto) 18.9 % (10.0-50.0); Mean Corpuscular Hemoglobin 29.7 pg (28.0-32.0); Mean Corpuscular Hgb Conc. 33.4 g/dL (32.0-36.0); Mean Corpuscular Volume 89.1 fL (80.0-100.0); Monocytes # (auto) 0.4 10 ^3/uL (0-1.3); Monocytes % (auto) 8.7 % (0.0-12.0); Neutrophils # (auto) 3.4 10 ^3/uL (1.6-8.6); Neutrophils % (auto) 71.1 % (37.0-80.0); Platelet Count (auto) 156 10^3/uL (140-450); Red Blood Cells 4.14 10^6/uL (4.5-5.90); White Blood Cell 4.8 10^3/uL (4.4-10.8)
[2024-07-19 01:59] LABS: Alanine Aminotransferase 16 U/L (7-40); Alkaline Phosphatase 62 U/L (46-116); Anion Gap 7 (5-15); Aspartate Aminotransferase 23 U/L (13-40); BUN/Creatinine Ratio 10.7 (10.0-20.0); Blood Urea Nitrogen 14 mg/dL (9-23); Calcium 9.8 mg/dL (8.7-10.4); Carbon Dioxide 27 mmol/L (20-31); Chloride 106 mmol/L (98-107); Potassium 4.1 mmol/L (3.5-5.1); Sodium 140 mmol/L (136-145)
[2024-07-19 02:00] LABS: Albumin 3.6 g/dL (3.2-4.8); Total Protein 6.6 g/dL (5.7-8.2)
[2024-07-19 02:03] LABS: Glucose 109 mg/dL (74-106)
[2024-07-19] MEDS ORDERED: NITROGLYCERIN 0.4 MG SL TAB SL PRN (04:30)
[2024-07-19] MEDS ORDERED: MORPHINE SULFATE INJ 2 MG/ml SYRG IV PRN (04:30)
[2024-07-19] MEDS ORDERED: ONDANSETRON HCL 4 MG/2 ML VIAL IV PRN (04:30)
[2024-07-19] MEDS ORDERED: ACETAMINOPHEN 325 MG TAB PO PRN (04:30)
--- NOTE | 2024-07-19 04:33 | DVHHP2 ---
History of Present Illness Reason for Visit: Generalized weakness History of Present Illness Patient being transferred from outside facility for continuity of care and disposition. Patient presented to outside facility yesterday with complaints of generalized weakness. Patient has a history of dementia as a poor historian. P er ED records patient presented with generalized weakness I have been ongoing for the past four days. On arrival patient was noted to have an elevated BNP and was treated for exacerbation of congestive heart failure. No complaints of chest pain or shortness for breath. No neurologic focal deficits. Past Medical History Hypertension, CVA, dementia, coronary artery disease, thyroid Past Surgical History CABG PTCA Family History Noncontributory Smoke: No ALCOHOL: none Drugs: None Lives: with Family Review of Systems Review of Systems Review of systems are limited due to the patient's advanced dementia. Allergies: Coded Allergies: NO KNOWN ALLERGIES (Unverified , 12/11/23) Medications Current Medications Medications Dose Ordered Sig/Ever Route Start Time Stop Time Status Last Admin Dose Admin Aspirin 81 mg DAILY PO 07/19/24 10:00 UNV Furosemide 20 mg BIDD IV 07/19/24 06:00 UNV Atorvastatin Calcium 80 mg HS PO 07/19/24 22:00 UNV Clopidogrel Bisulfate 75 mg DAILY PO 07/19/24 10:00 UNV Hydralazine HCl 25 mg Q12HR PO 07/19/24 10:00 UNV Levothyroxine Sodium 25 mcg QAM@0600 PO 07/19/24 06:00 UNV Ondansetron HCl 4 mg Q4HP PRN IV 07/19/24 04:30 UNV Enoxaparin Sodium 40 mg DAILY SC 07/19/24 10:00 UNV Acetaminophen 650 mg Q6HP PRN PO 07/19/24 04:30 Nitroglycerin 0.4 mg Q5MINP PRN SL 07/19/24 04:30 Morphine Sulfate 2 mg Q30M PRN IV 07/19/24 04:30 Exam Vital Signs Vital Signs Date Time Temp Pulse Resp B/P (MAP) Pulse Ox O2 Delivery O2 Flow Rate FiO2 07/19/24 00:50 Room Air* 0 07/18/24 23:50 97.8 72 17 170/94 (119) 94 97.8 Exam Gen: 84-year-old male in mild distress Skin: Warm, dry, normal color and texture, no rash. HEENT: Normocephalic atraumatic, mucous membranes moist and pink. Neck: Cervical and supraclavicular nodes normal without enlargement, trachea is midline, thyroid gland is normal without masses. Pulmonary: Clear to auscultation and percussion bilaterally. Cardiac: Regular rate and rhythm. No murmur Abdomen: Soft, nontender, nondistended, bowel sounds present all 4 quadrants, no guarding, no rigidity, no organomegaly. Extremities: No cyanosis, clubbing, no edema Neuro: Cranial nerves II through XII grossly intact, normal affect and speech, no focal motor deficits. Labs/Xrays ORDERING PHYSICIAN: KIERSTEN KIMBROUGH MD PROCEDURE(s): ECIDC - ECHO 2D MODE CARDIAC DOP REASON: POST-PCI ORDER NUMBER(s): [id number], ACCESSION NUMBER(s): [id number] APPROVED REPORT EXAM: Two-dimensional and M-mode echocardiogram with Doppler and color Doppler. Blood Pressure: 118/60 mmHg INDICATION Poat PCI RISK FACTORS Height: 5'8, Weight: 149 DIMENSIONS LVDd 5.6 (3.8-5.7cm) LA (2D) 4.6 (1.9-4.0cm) Aortic Root 3.7 (2.0- 3.7cm) LVDs 4.8 (2.5-4.0cm) LA (MM) (1.9-4.0cm) Aortic Cusp Exc 1.3 (1.5- 2.0cm) EF (%) 20.0 (55-70%) Rt. Atrium 5.1 (1.9-4.0cm) Asc. Aorta 3.8 cm IVSd 1.0 (0.7-1.1cm) RV (D) (1.8-2.4cm) PWd 1.1 (0.7-1.1cm) Mitral Valve Mitral Mitral Stenosis E wave 0.91m/s MV Mean GR. 2mmHg A wave m/s MV Peak GR. 100mmHg E/A ratio 0.0 2D MVA cm2 DECEL Time 174ms PRESS 1/2 Time ms Aortic Valve Aortic Valve Aortic Stenosis V1 0.67m/s AO Mean GR. 3mmHg V2 1.07m/s AO Peak GR. 5mmHg LVOT Diameter 2.5 (1.8-2.4cm) Doppler RODRICK 3.07cm2 AI P 1/2 Time 394.10ms Pulmonic Valve V2 0.85m/s Tricuspid Valve TR Velocity 3.32m/s RVSP 60mmHg Conclusion DILATED ALL CARDIAC CHAMBERS LV EJECTION FRACTION IS ONLY 20% SEVERE MITRAL REGURGITATION MODERATE DEGREE AORTIC REGURGITATION NO EFFUSION RVSP IS 60 MM OF HG AND IS VERY HIGH CRITICAL PULMONARY HYPERTENSION SIGNED BY: KIERSTEN KIMBROUGH MD SIGNED DATE/TIME: 12/13/23 0132 CC: Labs Test 07/19/24 01:30 Range/Units White Blood Count 4.8 4.4-10.8 10^3/uL Red Blood Count 4.14 L 4.5-5.90 10^6/uL Hemoglobin 12.3 L 13.5-17.5 g/dL Hematocrit 36.9 L 41.0-53.0 % Mean Corpuscular Volume 89.1 80.0-100.0 fL Mean Corpuscular Hemoglobin 29.7 28.0-32.0 pg Mean Corpuscular Hemoglobin Concent 33.4 32.0-36.0 g/dL Red Cell Distribution Width 18.0 H 11.8-14.3 % Platelet Count 156 140-450 10^3/uL Mean Platelet Volume 8.3 6.9-10.8 fL Neutrophils (%) (Auto) 71.1 37.0-80.0 % Lymphocytes (%) (Auto) 18.9 10.0-50.0 % Monocytes (%) (Auto) 8.7 0.0-12.0 % Eosinophils (%) (Auto) 0.6 0.0-7.0 % Basophils (%) (Auto) 0.7 0.0-2.0 % Neutrophils # (Auto) 3.4 1.6-8.6 10 ^3/uL Lymphocytes # (Auto) 0.9 0.4-5.4 10 ^3/uL Monocytes # (Auto) 0.4 0-1.3 10 ^3/uL Eosinophils # (Auto) 0 0-0.8 10 ^3/uL Basophils # (Auto) 0 0-0.2 10 ^3/uL Nucleated Red Blood Cells 0.0 % Sodium Level 140 136-145 mmol/L Potassium Level 4.1 3.5-5.1 mmol/L Chloride Level 106 98-107 mmol/L Carbon Dioxide Level 27 20-31 mmol/L Anion Gap 7 5-15 Blood Urea Nitrogen 14 9-23 mg/dL Creatinine 1.31 H 0.700-1.30 mg/dL Glomerular Filtration Rate Calc 53 >90 mL/min BUN/Creatinine Ratio 10.7 10.0-20.0 Serum Glucose 109 H 74-106 mg/dL Calcium Level 9.8 8.7-10.4 mg/dL Total Bilirubin 1.0 0.2-1.0 mg/dL Aspartate Amino Transferase (AST) 23 13-40 U/L Alanine Aminotransferase (ALT) 16 7-40 U/L Alkaline Phosphatase 62 46-116 U/L Troponin I High Sensitivity 49 </=54 ng/L B-Type Natriuretic Peptide 4332.62 0-100 pg/mL Total Protein 6.6 5.7-8.2 g/dL Albumin 3.6 3.2-4.8 g/dL Assessment/Plan Assessment/Plan Assessment Acute on chronic congestive heart failure Dementia Acute kidney injury Accelerated hypertension Extensive atherosclerotic disease Plan Admit the patient to telemetry to the hospitalist Cardiology consultation Resume home medications IV Lasix Continue treatment per orders. Plan discussed with: Patient My Orders Orders - ALFONSO PARKER Procedure Category Date Status Time Chest Xray 1 View XY 07/19/24 Logged 01:09 Aspirin Tablet PHA 07/19/24 Logged 10:00 Furosemide Injection PHA 07/19/24 Logged (Lasix Injection) 06:00 Atorvastatin (Lipitor) PHA 07/19/24 Transmitted 22:00 Clopidogrel Bisulfate PHA 07/19/24 Transmitted (Plavix) 10:00 Hydralazine Hcl PHA 07/19/24 Logged Tablet (Apresoline 10:00 Levothyroxine Tablet PHA 07/19/24 Logged (Synthroid Tablet) 06:00 * Cardiology Consult CONS 07/19/24 Transmitted 04:22 Basic Metabolic Panel LAB 07/20/24 Verified 04:00 Admit ADMIT 07/19/24 Transmitted 04:22 Ondansetron Hcl PHA 07/19/24 Logged (Zofran) 04:30 Enoxaparin Sodium PHA 07/19/24 Logged (Lovenox) 10:00 Cardiac DIET 07/19/24 Transmitted Diet-2gna,Lofat,Lochol Breakfast Condition: Fair [facility] 07/19/24 In Process 04:22 Acetaminophen Tablet [facility] 07/19/24 Logged (Tylenol Tablet) 04:30 Bedrest With Bathroom [facility] 07/19/24 In Process Privileg 04:22 Nitroglycerin [facility] 07/19/24 Logged Sublingual (Ntrostat 04:30 Morphine Sulfate [facility] 07/19/24 Logged Injection 04:30 Stat Ekg For Chest [facility] 07/19/24 In Process Pain 04:22 Notify Md Of Changes [facility] 07/19/24 In Process From Base 04:22 Status Controller For [facility] 07/19/24 In Process 24 Hours 04:22 Emergency Dysrhythmia [facility] 07/19/24 In Process Protocol 04:22 Rhythm Strips Once [facility] 07/19/24 In Process Every Shift 04:22 Oxygen By Nasal RT 07/19/24 Transmitted Cannula 04:22 Date of Service: Jul 19, 2024 Billing Provider: ALFONSO PARKER Common Visit Codes: [id number] INP/OBS CARE (HIGH) ALFONSO PARKER Jul 19, 2024 04:33
[2024-07-19 05:00] VITALS: BP 116/80; PULSE 55; RESP 16; TEMP 98; O2SAT 95
[2024-07-19] MEDS: FUROSEMIDE 20 MG/2 ML VIAL IV SCH (06:00)
[2024-07-19] MEDS: LEVOTHYROXINE SODIUM 25 MCG TAB PO SCH (06:00)
[2024-07-19 08:00] VITALS: PULSE 56; PULSE 65; RESP 17; O2SAT 96
--- NOTE | 2024-07-19 08:53 | DVH ---
CHEST RADIOGRAPH Indication: sob Technique: Single AP portable chest radiograph was obtained. Comparison: XY CHEST PORTABLE on DOS: 04/10/24, XY CHEST PORTABLE on DOS: 04/09/24, XY CHEST XRAY 1 V IEW on DOS: 04/08/24, XY CHEST PORTABLE on DOS: 12/11/23, XY CHEST PORTABLE on DOS: 04/10/24 FINDINGS: Unchanged cardiomegaly. Prominence of the pulmonary vasculature appears improved. Small bilateral ple ural effusions without interval change. No focal consolidation. Likely atelectasis in the lung bases. IMPRESSION: Unchanged cardiomegaly and small bilateral pleural effusions with improved prominence of the pulmonar y vasculature.
[2024-07-19 09:00] VITALS: BP 160/70; PULSE 65; RESP 17; TEMP 98; O2SAT 96
[2024-07-19] MEDS ORDERED: hydrALAZINE HCL 20 MG/ML VL IV PRN (09:00)
--- NOTE | 2024-07-19 09:28 | DVHINCON2 ---
Date Seen: Jul 19, 2024 Referring Physician PATRICIA Chan Reason for Consultation CHF History of Present Illness This is an 84-year-old male who got transferred from [facility] for continuation of care in the setting of generalized weakness. At time of assessment, the patient was found alert his very poor historian and only complains of intermittent SOB. Information obtained from records which indicate he presented to the aforementioned facility with complaints of generalized weakness and questionable facial droop. He underwent a 12 lead electrocardiogram revealing a sinus rhythm without evidence of ischemia. Baseline troponin level is negative. He was also found with a systolic blood pressure in the 170s mmHg. Patient is unable to state home medications or name of primary hand drawer in. Significant medical history includes severe coronary artery disease status post 5-vessel coronary artery bypass graft at [facility] on 2007 status post PTCA of the LCx on 11/2023, hypertension, dyslipidemia, history of CVAs x2, and remote history of tobacco and alcohol use. Past Medical History Past medical history reviewed. No other significant than mentioned above. Past Surgical History Five-vessel CABG, 2007 Family History: FH: dementia G8 MOTHER G8 FATHER Family History Family history reviewed. Social History Denies the use of illicit drugs, alcohol, or tobacco use. Lives at home with and daughters. Allergies: Coded Allergies: NO KNOWN ALLERGIES (Unverified , 12/11/23) Home Meds Reported Medications Aspirin (Aspirin) 81 Mg Tab, 81 MG PO DAILY, TAB 07/19/24 Fluoxetine HCl (Pmdd) (Fluoxetine HCl) 20 Mg Tab, 20 MG PO DAILY, TAB 07/19/24 Prazosin Hcl (Minipres) 1 Mg Cp, 1 MG PO DAILY, CAP 07/19/24 Levothyroxine Sodium (Levothyroxine Sodium) 25 Mcg Tab, 25 MCG PO DAILY, TAB 07/19/24 Atorvastatin Calcium (Lipitor) 80 Mg Tab, 80 MG PO DAILY, TAB 07/19/24 Clopidogrel Bisulfate (Plavix) 75 Mg Tab, 75 MG PO DAILY, TAB 07/19/24 Hydralazine Hcl (Hydralazine Hcl) 50 Mg Tab, 25 MG PO BID, TAB 07/19/24 Home Meds Home medications reviewed. Current Medications Current Medications Medications (Trade) Dose Ordered Sig/Ever Route PRN Reason Start Time Stop Time Status Last Admin Aspirin 81 mg DAILY PO 07/19/24 10:00 Furosemide (Lasix Injection) 20 mg BIDD IV 07/19/24 06:00 Atorvastatin Calcium (Lipitor) 80 mg HS PO 07/19/24 22:00 Clopidogrel Bisulfate (Plavix) 75 mg DAILY PO 07/19/24 10:00 Hydralazine HCl (Apresoline Tablet) 25 mg Q12HR PO 07/19/24 10:00 Levothyroxine Sodium (Synthroid Tablet) 25 mcg QAM@0600 PO 07/19/24 06:00 Ondansetron HCl (Zofran) 4 mg Q4HP PRN IV NAUSEA / VOMITING 07/19/24 04:30 Enoxaparin Sodium (Lovenox) 40 mg DAILY SC 07/19/24 10:00 Acetaminophen (Tylenol Tablet) 650 mg Q6HP PRN PO PAIN SCALE 1-3 OR TEMP>100.4 07/19/24 04:30 Nitroglycerin (Ntrostat Sublingual) 0.4 mg Q5MINP PRN SL FOR CHEST PAIN 07/19/24 04:30 Morphine Sulfate 2 mg Q30M PRN IV FOR CHEST PAIN 07/19/24 04:30 Review of Systems Constitutional: No symptom reported Ears, Nose, & Throat: No symptom reported Eyes: No symptom reported Neurological: No symptoms reported Pulmonary/Respiratory: SOB Cardiovascular: No symptom reported Gastrointestinal: No symptom reported Genitourinary: No symptom reported Musculoskeletal: No symptom reported Skin: No symptom reported Psychiatric: No symptom reported Endocrine: No symptom reported Hemotologic/Lymphatic: No symptom reported Vital Signs Vital Signs Date Time Temp Pulse Resp B/P (MAP) Pulse Ox O2 Delivery O2 Flow Rate FiO2 07/19/24 05:00 98.0 55 16 116/80 (92) 95 98.0 07/19/24 00:50 Room Air* 0 21 Physical Exam General Appearance: Elder. In no acute distress Head Exam: Normal inspection Neck Exam: Normal inspection. Non-tender. Normal alignment Pulmonary/Respiratory: Chest non-tender. Crackles to bilateral breath sounds Cardiovascular/Chest: Regular rate and rhythm. S1, S2. Sinus rhythm. No murmurs. + JVD. Peripheral Pulses: 2+ Radial (R). 2+ Radial (L). 2+ Pedal (R). 2+ Pedal (L) Abdominal Exam: Normal bowel sounds. Soft. Nontender. No hepatospenomegaly. N o masses Ankle Exam: Negative ankle edema Lower extremities: Negative lower extremity edema Neuro/Mental Status: A&O x2-3. Alert but very poor historian Thoughts/Psych: Normal thought pattern. Appropriate mood and affect. Appearance: In no acute distress Skin Exam: Normal inspection. Normal color. Warm. Dry Labs/Diagnostic Data Labs Test 07/19/24 01:30 Range/Units White Blood Count 4.8 4.4-10.8 10^3/uL Red Blood Count 4.14 L 4.5-5.90 10^6/uL Hemoglobin 12.3 L 13.5-17.5 g/dL Hematocrit 36.9 L 41.0-53.0 % Mean Corpuscular Volume 89.1 80.0-100.0 fL Mean Corpuscular Hemoglobin 29.7 28.0-32.0 pg Mean Corpuscular Hemoglobin Concent 33.4 32.0-36.0 g/dL Red Cell Distribution Width 18.0 H 11.8-14.3 % Platelet Count 156 140-450 10^3/uL Mean Platelet Volume 8.3 6.9-10.8 fL Neutrophils (%) (Auto) 71.1 37.0-80.0 % Lymphocytes (%) (Auto) 18.9 10.0-50.0 % Monocytes (%) (Auto) 8.7 0.0-12.0 % Eosinophils (%) (Auto) 0.6 0.0-7.0 % Basophils (%) (Auto) 0.7 0.0-2.0 % Neutrophils # (Auto) 3.4 1.6-8.6 10 ^3/uL Lymphocytes # (Auto) 0.9 0.4-5.4 10 ^3/uL Monocytes # (Auto) 0.4 0-1.3 10 ^3/uL Eosinophils # (Auto) 0 0-0.8 10 ^3/uL Basophils # (Auto) 0 0-0.2 10 ^3/uL Nucleated Red Blood Cells 0.0 % Sodium Level 140 136-145 mmol/L Potassium Level 4.1 3.5-5.1 mmol/L Chloride Level 106 98-107 mmol/L Carbon Dioxide Level 27 20-31 mmol/L Anion Gap 7 5-15 Blood Urea Nitrogen 14 9-23 mg/dL Creatinine 1.31 H 0.700-1.30 mg/dL Glomerular Filtration Rate Calc 53 >90 mL/min BUN/Creatinine Ratio 10.7 10.0-20.0 Serum Glucose 109 H 74-106 mg/dL Calcium Level 9.8 8.7-10.4 mg/dL Total Bilirubin 1.0 0.2-1.0 mg/dL Aspartate Amino Transferase (AST) 23 13-40 U/L Alanine Aminotransferase (ALT) 16 7-40 U/L Alkaline Phosphatase 62 46-116 U/L Troponin I High Sensitivity 49 </=54 ng/L B-Type Natriuretic Peptide 4332.62 0-100 pg/mL Total Protein 6.6 5.7-8.2 g/dL Albumin 3.6 3.2-4.8 g/dL Assessment Acute on chronic decompensated HFrEF, NYHA Class III Ischemic/dilated cardiomyopathy with LVEF of 20% Coronary artery disease with history of 5-vessel CABG (2007) s/p PTCA x 1 CATHERINE (11/2023) Mitral regurgitation, severe degree Pulmonary hypertension Hypertensive urgency Dyslipidemia CKD Stage IIIb Hx CVAs Anemia Plan/Recommendation (Dr. Fleming) The patient with a severe ischemic/dilated cardiomyopathy presents with an acute exacerbation of heart failure. A recent transthoracic echocardiogram revealed an EF of 20% with a dilated cardiomyopathy, severe mitral regurgitation, moderate aortic regurgitation, and RVSP of 60 mmHg. Initiate preload and afterload reduction as tolerated. Strict I&Os, daily weight, fluid restriction. Continue DAPT, lipid lowering agent, and BB given recent PTCA with stent placement of the LCx on 11/2023. Continue aggressive blood pressure control. Monitor ECG changes and notify. DVT/VTE prophylaxis. Thank you for allowing us to participate in this patient's care. Please call if you have any questions or concerns. This medical document was created using an electronic medical record system with voice recognition software and computerized dictation system. Although this document has been carefully reviewed, there might still be some phonetic and typographical errors. Occasional wrong-word or ``sound-alike substitutions may have occurred due to the inherent limitations of voice recognition software. These areas are purely typographical due to imperfections of the software programs and do not reflect any compromise in the patient's medical care. Please read the chart carefully and recognize, using context, where these substitutions have occurred. Plan discussed with: Patient, Other NYHA Physical activity limitations: Class3(Marked) ordinary (activity causes symtoms) Date of Service: Jul 19, 2024 Billing Provider: JUANITO STERLING Cardiology Common Codes: [id number] INP/OBS CARE (High) JUANITO STERLING Jul 19, 2024 09:28
[2024-07-19] MEDS: ASPirin 81 mg TAB PO SCH (09:52)
[2024-07-19] MEDS: CLOPIDOGREL BISULFATE 75 MG TAB PO SCH (09:53)
[2024-07-19] MEDS: ENOXAPARIN SOD 40 MG/0.4 ML SYRINGE SC SCH (09:54)
[2024-07-19] MEDS ORDERED: hydrALAZINE HCL 25 MG TAB PO SCH (10:00)
[2024-07-19] MEDS: SPIRONOLACTONE 25 MG TAB PO SCH (10:14)
[2024-07-19] MEDS: EMPAGLIFLOZIN 10 MG TAB PO SCH (10:14)
[2024-07-19] MEDS: METOPROLOL SUCCINATE XL 50 MG TAB PO SCH (10:15)
[2024-07-19] MEDS: LISINOPRIL 5 MG TAB PO SCH (10:15)
[2024-07-19] MEDS: FUROSEMIDE 40 MG/4 ML VIAL IV ONE ×2 (10:58→15:45)
[2024-07-19 13:00] VITALS: BP 113/71; PULSE 59; RESP 17; TEMP 96.7; O2SAT 97
--- NOTE | 2024-07-19 15:47 | DVHDS2 ---
Discharge Summary Date of Admission Jul 19, 2024 at 00:28 Date of Discharge: Jul 19, 2024 Admitting Diagnosis Acute on chronic decompensated HFrEF Labs/Diagnostic Data: Laboratory Results Test 07/19/24 01:30 White Blood Count 4.8 10^3/uL (4.4-10.8) Red Blood Count 4.14 10^6/uL (4.5-5.90) Hemoglobin 12.3 g/dL (13.5-17.5) Hematocrit 36.9 % (41.0-53.0) Mean Corpuscular Volume 89.1 fL (80.0-100.0) Mean Corpuscular Hemoglobin 29.7 pg (28.0-32.0) Mean Corpuscular Hemoglobin Concent 33.4 g/dL (32.0-36.0) Red Cell Distribution Width 18.0 % (11.8-14.3) Platelet Count 156 10^3/uL (140-450) Mean Platelet Volume 8.3 fL (6.9-10.8) Neutrophils (%) (Auto) 71.1 % (37.0-80.0) Lymphocytes (%) (Auto) 18.9 % (10.0-50.0) Monocytes (%) (Auto) 8.7 % (0.0-12.0) Eosinophils (%) (Auto) 0.6 % (0.0-7.0) Basophils (%) (Auto) 0.7 % (0.0-2.0) Neutrophils # (Auto) 3.4 10 ^3/uL (1.6-8.6) Lymphocytes # (Auto) 0.9 10 ^3/uL (0.4-5.4) Monocytes # (Auto) 0.4 10 ^3/uL (0-1.3) Eosinophils # (Auto) 0 10 ^3/uL (0-0.8) Basophils # (Auto) 0 10 ^3/uL (0-0.2) Nucleated Red Blood Cells 0.0 % Sodium Level 140 mmol/L (136-145) Potassium Level 4.1 mmol/L (3.5-5.1) Chloride Level 106 mmol/L (98-107) Carbon Dioxide Level 27 mmol/L (20-31) Anion Gap 7 (5-15) Blood Urea Nitrogen 14 mg/dL (9-23) Creatinine 1.31 mg/dL (0.700-1.30) Glomerular Filtration Rate Calc 53 mL/min (>90) BUN/Creatinine Ratio 10.7 (10.0-20.0) Serum Glucose 109 mg/dL (74-106) Calcium Level 9.8 mg/dL (8.7-10.4) Total Bilirubin 1.0 mg/dL (0.2-1.0) Aspartate Amino Transferase (AST) 23 U/L (13-40) Alanine Aminotransferase (ALT) 16 U/L (7-40) Alkaline Phosphatase 62 U/L (46-116) Troponin I High Sensitivity 49 ng/L (</=54) B-Type Natriuretic Peptide 4332.62 pg/mL (0-100) Total Protein 6.6 g/dL (5.7-8.2) Albumin 3.6 g/dL (3.2-4.8) Other Laboratory Tests 07/19/24 01:30 Brief Hx & Hospital Course: This is an 84-year-old male who got transferred from [facility] for continuation of care in the setting of generalized weakness. At time of assessment, the patient was found alert his very poor historian and only complains of intermittent SOB. Information obtained from records which indicate he presented to the aforementioned facility with complaints of generalized weakness and questionable facial droop. He underwent a 12 lead electrocardiogram revealing a sinus rhythm without evidence of ischemia. Baseline troponin level is negative. He was also found with a systolic blood pressure in the 170s mmHg. Patient was treated with Lasix IV. Feeling better, patient wishes to be discharged home. Has low EF 20%. Condition at Discharge: Poor Final Diagnosis/Problems List Acute on chronic decompensated HFrEF, NYHA Class III Ischemic/dilated cardiomyopathy with LVEF of 20% Coronary artery disease with history of 5-vessel CABG (2007) s/p PTCA x 1 CATHERINE (11/2023) Mitral regurgitation, severe degree Pulmonary hypertension Hypertensive urgency Dyslipidemia CKD Stage IIIb Hx CVAs Anemia Discharge Disposition: Home Discharge Instruct/Medications Diet: Cardiac 2g Na,low cholest (2 gm sodium, low cholesterol) Follow Up/Referral: [facility] PCP in 1 week Medications: resume home meds Discharge Statement: "Patient was advised to return to the ER or call 911 if any headaches, dizziness, shortness of breath, chest pain, abdominal pain, bleeding, fevers, or worsening of medical condition. Patient was counseled about treatment plan, medications, possible side effects, patientverbalized understanding. All questions were answered to the best of my ability. This discharge took greater then 30 minutes in planning, reviewing documentation, counseling the patient, and discussing with other team members." ASSESSMENT ASSESSMENT Assessment Date of Service: Jul 19, 2024 Billing Provider: JACQUELIN GOODWIN MD Common Visit Codes: [id number] DISCH DAY >30min JACQUELIN GOODWIN MD Jul 19, 2024 15:47
[2024-07-19 16:33] VITALS: BP 132/71; PULSE 65; RESP 20; TEMP 98.2; O2SAT 97
[2024-07-19 17:00] VITALS: BP 142/77; PULSE 67; RESP 18; TEMP 97.9; O2SAT 91
[2024-07-19] MEDS ORDERED: FUROSEMIDE 20 MG/2 ML VIAL IV SCH (18:00)
[2024-07-19] MEDS ORDERED: ATORVASTATIN 20 MG TAB PO SCH (22:00)
== END 2024-07-19 18:15 | disposition home or self-care (01) | DRG 291 ==
LOC: TELE-WESTW 00:28
PROVIDERS: ADMIT Nurse Practitioner; ATTEND Internal Medicine
DX: I13.0 Hypertensive heart and chronic kidney disease with heart failure and stage 1 through stage 4 chronic kidney disease, or unspecified chronic kidney disease (principal); I50.23 Acute on chronic systolic (congestive) heart failure; N17.9 Acute kidney failure, unspecified; I16.0 Hypertensive urgency; I42.0 Dilated cardiomyopathy; F03.90 Unspecified dementia, unspecified severity, without behavioral disturbance, psychotic disturbance, mood disturbance, and anxiety; E78.5 Hyperlipidemia, unspecified; I25.10 Atherosclerotic heart disease of native coronary artery without angina pectoris; I08.0 Rheumatic disorders of both mitral and aortic valves; I27.20 Pulmonary hypertension, unspecified; D64.9 Anemia, unspecified; N18.32 Chronic kidney disease, stage 3b; Z86.73 Personal history of transient ischemic attack (TIA), and cerebral infarction without residual deficits; Z95.1 Presence of aortocoronary bypass graft; Z87.891 Personal history of nicotine dependence; Z95.5 Presence of coronary angioplasty implant and graft; Z79.82 Long term (current) use of aspirin; Z79.899 Other long term (current) drug therapy
CPT/HCPCS: 36415; 71045; 80053; 83880; 84484; 85025; 87081; G0378